=== PATIENT | female | born 1970 | race Caucasian/White ===

== ENCOUNTER 2018-03-19 15:42 | Emergency (ER) | payer OTHER ==
[~2018-03-19] VITALS: Ht 167.6 cm; Wt 101.2 kg
[2018-03-19 16:05] VITALS: BP_SYST 147
[2018-03-19 17:15] VITALS: BP_SYST 136
== END 2018-03-19 17:15 | disposition home or self-care (01) ==
LOC: SED 15:42
DX: S05.8X1A Other injuries of right eye and orbit, initial encounter (principal); Z88.6 Allergy status to analgesic agent; Z88.8 Allergy status to other drugs, medicaments and biological substances; W33.01XA Accidental discharge of shotgun, initial encounter; Y93.89 Activity, other specified; Y92.89 Other specified places as the place of occurrence of the external cause; Y99.8 Other external cause status
CPT/HCPCS: 99283